=== PATIENT | male | born 1975 | race Hispanic/Latino ===

== ENCOUNTER 2017-03-28 10:57 | Emergency (ER) | payer BC, SELFPAY ==
[2017-03-28 12:23] LABS: #Eosinphils 0.1 thou/uL (0.0-0.7); #Monocytes 0.4 thou/uL (0.11-0.59); %Basophils 0.5 % (0.0-1.0); %Eosinophils 2.3 % (0.0-10.0); %Lymphocytes 36.1 % (21.0-51.0); %Monocytes 6.9 % (0.0-10.0); Hematocrit 46.3 % (42.0-52.0); Red Blood Cell (RBC) Count 5.52 mill/uL (4.70-6.10); White Blood Cell (WBC) Count 5.6 thou/uL (4.8-10.8)
[2017-03-28 12:39] LABS: ALT (SGPT) 23 U/L (8-55); AST (SGOT) 19 U/L (5-34); Alkaline Phosphatase 79 U/L (40-150); Anion Gap 18 mmol/L (10-20); BUN (Urea Nitrogen) 13 mg/dL (8.9-20.6); Bilirubin, Total 0.5 mg/dL (0.2-1.2); Calc. Creatinine Clearance 0 mL/min (70-130); Calcium 9.4 mg/dL (7.8-10.44); Carbon Dioxide 20 mmol/L (22-29); Chloride 100 mmol/L (98-107); Estimated GFR-MDRD Greater than 90; Globulin 3.6 g/dL (2.4-3.5); Protein, Total 7.8 g/dL (6.0-8.3)
[2017-03-28 12:43] LABS: Troponin I Less than 0.010 ng/mL (< 0.028)
--- NOTE | 2017-03-28 13:07 | RAD ---
UPRIGHT PORTABLE CHEST 1 VIEW: Date: 03/28/17 HISTORY: 41-year-old male with chest pressure and numbness to left arm and back pain. FINDINGS: Monitor leads overlie the chest. Heart size is within normal limits. The lungs are clear. This exam is minimally underexposed. IMPRESSION: No acute intrathoracic disease. Stable from 06/26/16. POS: [facility]
[2017-03-28] MEDS ORDERED: HYDROcodone/Acetaminophen 10/325 mg Tablet ONE (13:24)
== END 2017-03-28 13:38 | disposition home or self-care (01) ==
LOC: ERS 10:57
DX: M54.12 Radiculopathy, cervical region (principal); G89.29 Other chronic pain; E78.5 Hyperlipidemia, unspecified; E11.9 Type 2 diabetes mellitus without complications
CPT/HCPCS: 36415; 36416; 71010; 80053; 82553; 84484; 85025; 93005

== ENCOUNTER 2017-06-03 01:08 | Emergency (ER) | payer SELFPAY ==
[2017-06-03 01:37] LABS: #Basophils 0.1 thou/uL (0.0-0.2); #Eosinphils 0.1 thou/uL (0.0-0.7); #Lymphocytes 1.9 thou/uL (1.20-3.40); #Monocytes 0.9 thou/uL (0.11-0.59); #Neutrophils 5.7 thou/uL (1.40-6.50); %Basophils 0.6 % (0.0-1.0); %Eosinophils 0.9 % (0.0-10.0); %Lymphocytes 21.8 % (21.0-51.0); %Monocytes 10.7 % (0.0-10.0); Hematocrit 47.2 % (42.0-52.0); Mean Platelet Volume 7.5 fL (7.4-10.4); White Blood Cell (WBC) Count 8.6 thou/uL (4.8-10.8)
[2017-06-03] MEDS ORDERED: Ondansetron HCl/PF 4 MG/2 ML Vial ONE (01:48)
[2017-06-03 01:52] LABS: ALT (SGPT) 32 U/L (8-55); AST (SGOT) 28 U/L (5-34); Alkaline Phosphatase 94 U/L (40-150); Anion Gap 17 mmol/L (10-20); BUN (Urea Nitrogen) 14 mg/dL (8.9-20.6); Bilirubin, Total 0.6 mg/dL (0.2-1.2); Calc. Creatinine Clearance 0 mL/min (70-130); Carbon Dioxide 21 mmol/L (22-29); Chloride 100 mmol/L (98-107); Estimated GFR-MDRD 77; Globulin 3.3 g/dL (2.4-3.5); Protein, Total 7.9 g/dL (6.0-8.3)
[2017-06-03] MEDS ORDERED: Morphine 4 MG/ML VIAL ONE (03:20)
[2017-06-03 04:00] LABS: Anion Gap 10 mmol/L (-14-95); T. Carbon Dioxide 23.9 mmol/L (1.0-85.0); pH (Venous) 7.378 (7.35-7.45); vO2 Saturation-calc 90.2 % (0.0-100.0)
[2017-06-03 04:14] LABS: Troponin I Less than 0.010 ng/mL (< 0.028)
[2017-06-03 04:15] LABS: Lactic Acid - Sepsis 1.5 mmol/L (0.5-2.2)
[2017-06-03] MEDS ORDERED: Acetaminophen 500 MG TAB ONE (04:48)
[2017-06-03] MEDS ORDERED: Bacitracin Zinc 1 Packet ONE (04:51)
--- NOTE | 2017-06-03 07:43 | RAD ---
CHEST PA AND LATERAL: History: 42-year-old male with cough and vomiting. Comparison: 03-28-17 FINDINGS: Heart size is normal. The lungs are clear. No pneumonia, edema, or pleural effusion. IMPRESSION: No acute intrathoracic disease. POS: [facility]
== END 2017-06-03 06:30 | disposition home or self-care (01) ==
LOC: ERS 01:08
DX: E11.65 Type 2 diabetes mellitus with hyperglycemia (principal); E86.0 Dehydration; J11.1 Influenza due to unidentified influenza virus with other respiratory manifestations; E78.5 Hyperlipidemia, unspecified; Z79.4 Long term (current) use of insulin
CPT/HCPCS: 36415; 36416; 71020; 80053; 82010; 82330; 82553; 82803; 83605; 83690; 84484; 85025; 96361; 96374; 96375; J2270; J2405

== ENCOUNTER 2017-06-05 03:01 | Inpatient (IN) | payer SELFPAY ==
[2017-06-05] MEDS ORDERED: Ondansetron HCl/PF 4 MG/2 ML Vial ONE (03:19)
[2017-06-05 03:34] LABS: Anion Gap 13 mmol/L (-14-95); T. Carbon Dioxide 23.1 mmol/L (1.0-85.0); pH (Venous) 7.362 (7.35-7.45); vO2 Saturation-calc 71.5 % (0.0-100.0)
[2017-06-05] MEDS ORDERED: Ketorolac Tromethamine 30 MG/ML VIAL ONE (03:34)
[2017-06-05 03:36] LABS: #Basophils 0.1 thou/uL (0.0-0.2); #Eosinphils 0.1 thou/uL (0.0-0.7); #Lymphocytes 2.5 thou/uL (1.20-3.40); #Monocytes 0.8 thou/uL (0.11-0.59); #Neutrophils 4.1 thou/uL (1.40-6.50); %Basophils 0.8 % (0.0-1.0); %Eosinophils 1.6 % (0.0-10.0); %Lymphocytes 32.7 % (21.0-51.0); %Monocytes 10.5 % (0.0-10.0); Hematocrit 45.3 % (42.0-52.0); Mean Platelet Volume 7.8 fL (7.4-10.4); Red Blood Cell (RBC) Count 5.25 mill/uL (4.70-6.10); White Blood Cell (WBC) Count 7.6 thou/uL (4.8-10.8)
[2017-06-05 03:40] LABS: Base Excess -4.7 mEq/L (0 (+/- 2.5)); O2 Content (venous) 20.4 VOL% (12.5-17.5); pH (venous) 7.35 (7.35-7.45)
[2017-06-05] MEDS ORDERED: Insulin Regular 300 UNITS/3 ML VIAL ONE (03:44)
[2017-06-05 03:55] LABS: ALT (SGPT) 28 U/L (8-55); AST (SGOT) 18 U/L (5-34); Alkaline Phosphatase 97 U/L (40-150); Anion Gap 19 mmol/L (10-20); BUN (Urea Nitrogen) 16 mg/dL (8.9-20.6); Bilirubin, Total 0.6 mg/dL (0.2-1.2); Calc. Creatinine Clearance 0 mL/min (70-130); Calcium 9.5 mg/dL (7.8-10.44); Carbon Dioxide 21 mmol/L (22-29); Chloride 96 mmol/L (98-107); Estimated GFR-MDRD 50; Globulin 3.1 g/dL (2.4-3.5); Protein, Total 7.6 g/dL (6.0-8.3)
[2017-06-05] MEDS ORDERED: Acetaminophen 500 MG TAB ONE (04:20)
[2017-06-05] MEDS ORDERED: Sodium Chloride 0.9% 1,000 ML IV SCH (05:42)
[2017-06-05] MEDS ORDERED: Acetaminophen 325 MG TAB PO PRN ×2 (05:42→07:12)
[2017-06-05] MEDS ORDERED: Ondansetron ODT 4 MG TAB SL PRN (05:42)
[2017-06-05] MEDS ORDERED: Ondansetron HCl/PF 4 MG/2 ML Vial IVP PRN ×2 (05:42→07:12)
[2017-06-05] MEDS ORDERED: NS 0.9% w/ 20 MEQ KCL 1,000 ML/1,000 ML BAG IV PRN (06:29)
[2017-06-05 06:31] VITALS: BMI 31.6
[2017-06-05] MEDS ORDERED: Sodium Chloride 0.65% Nasal 44 ML BOT EA NARE PRN (07:12)
[2017-06-05] MEDS ORDERED: Artificial Tears 18 DROP/0.9 ML EA EYE PRN (07:12)
[2017-06-05] MEDS ORDERED: Zolpidem Tartrate 5 MG TAB PO PRN (07:12)
[2017-06-05] MEDS ORDERED: Loperamide HCl 2 MG CAP PO PRN (07:12)
[2017-06-05] MEDS ORDERED: hydrALAZINE 20 MG/ML VIAL SLOW IVP PRN (07:12)
[2017-06-05] MEDS ORDERED: Ondansetron ODT 4 MG TAB PO PRN (07:12)
[2017-06-05] MEDS ORDERED: Milk Of Magnesia 30 ML UDCUP PO PRN (07:12)
[2017-06-05] MEDS ORDERED: Chloraseptic Spray 180 ml Bottle PO PRN (07:12)
[2017-06-05] MEDS ORDERED: HYDROcodone/Acetaminophen 5/325 mg Tablet PO PRN (07:12)
[2017-06-05] MEDS ORDERED: Loratadine 10 MG TAB PO PRN (07:12)
[2017-06-05] MEDS ORDERED: Senokot 8.6 MG TAB PO PRN (07:12)
[2017-06-05] MEDS ORDERED: Eucerin (Mineral Oil/Petrolatum,White) 30 gm Jar TOP PRN (07:12)
[2017-06-05] MEDS ORDERED: Mag-Al 1200 mg/1200 mg/30 ML UDCUP PO PRN (07:12)
[2017-06-05] MEDS ORDERED: Dextrose 50% Abboject 50 ML SYRINGE SLOW IVP PRN (07:12)
[2017-06-05] MEDS ORDERED: Dextrose 5% in Water 1,000 ML IV PRN (07:12)
[2017-06-05] MEDS ORDERED: Promethazine HCl 25 MG/ML VIAL IM/IV PRN (07:19)
--- NOTE | 2017-06-05 07:40 | RAD ---
PORTABLE CHEST: History: Fever, malaise. Flu syndrome. Comparison: 06-03-17 FINDINGS: Lungs remain clear. No infiltrate identified. Heart and mediastinum are unremarkable. IMPRESSION: No acute abnormality. POS: [facility]
[2017-06-05] MEDS: Famotidine/PF 20 mg/2ml Vial SLOW IVP SCH ×2 (08:14→20:50)
[2017-06-05] MEDS: Gemfibrozil 600 MG TAB PO SCH ×2 (08:14→15:46)
[2017-06-05] MEDS: NS 0.9% w/ 20 MEQ KCL 1,000 ML/1,000 ML BAG IV SCH ×3 (08:22→22:34)
[2017-06-05] MEDS: Enoxaparin Sodium 40 MG/0.4 ML SYRINGE SC SCH (08:24)
[2017-06-05] MEDS ORDERED: Non-Formulary Item 1 EACH (Levemir Flexpen [Levemir Flexpen] 10 UNIT) SC SCH (09:00)
[2017-06-05] MEDS: Insulin Detemir 100 UNITS/ML 10 UNITS in Pre-Filled Syringe 1 EACH SC SCH ×2 (10:32→20:51)
--- NOTE | 2017-06-05 12:07 | HP ---
PRIMARY CARE PHYSICIAN: Tressa Kunz M.D. REASON FOR ADMISSION: Acute kidney failure and hyperglycemia. HISTORY OF PRESENT ILLNESS: A 42-year-old male with a history of diabetes type 2, dyslipide osmany, vitamin D deficiency, who presented to the emergency room with complaint of nausea, vomiting, chris dy ache. Patient reports that he came to the emergency room on 06/03/2017 and he was told that he wilhelm d influenza, but Influenza testing was done on that day and that was negative. The patient was havin g headache, body ache, fever or chills, rigors at home and he was also having nausea and vomiting. H e was not tolerating any medication as well as diet. The patient was not feeling better and his over -the-counter treatment was not helping, and that is why he decided to come to the emergency room agai n today. The patient was not taking his Levemir insulin because he was not holding anything down. P atient was also not holding liquid. Patient was becoming more and more weak and that is why he came to the ER. In the emergency room, he was found with hyperglycemia and acute kidney failure. Subsequ ently, patient was admitted in IMCU with insulin drip. When I saw this patient, at that time, patient was feeling better. He was able to tolerate some food . He was still not feeling normal, but he was feeling some improvement after emergency room treatmen t. The patient denies any runny nose. He denies any sinus headache. He denies any ear problems. He de nies any sore throat. He denies any cough, chest pain, palpitations, shortness of breath. He does r eport polyuria or polydipsia. REVIEW OF SYSTEMS: The following complete review of systems was negative, unless otherwise mentioned in the HPI or below: Constitutional: Weight loss or gain, ability to conduct usual activities. Skin: Rash, itching. Eyes: Double vision, pain. ENT/Mouth: Nose bleeding, neck stiffness, pain, tenderness. Cardiovascular: Palpitations, dyspnea on exertion, orthopnea. Respiratory: Shortness of breath, wheezing, cough, hemoptysis, fever or night sweats. Gastrointestinal: Poor appetite, abdominal pain, heartburn, nausea, vomiting, constipation, or diarr hea. Genitourinary: Urgency, frequency, dysuria, nocturia. Musculoskeletal: Pain, swelling. Neurologic/Psychiatric: Anxiety, depression. Allergy/Immunologic: Skin rash, bleeding tendency. Please see my HPI for pertinent positives and negatives. All other review of systems reviewed and ne gative except as mentioned in the HPI. ALLERGIES: No known drug allergies. CURRENT HOME MEDICATION: Levemir 10 units subcu daily. PAST MEDICAL HISTORY: Diabetes type 2 on insulin, chronic low back pain, dyslipidemia, history of pe ptic ulcer disease, hypertension, and obesity. PAST SURGICAL HISTORY: Rhinoplasty, cardiac catheterization in 2015, L4-L5 fusion in 2016. PAST PSYCHIATRIC HISTORY: Reviewed and negative. SOCIAL HISTORY: Patient lives at home with the family. No history of tobacco, alcohol or illicit dr ug abuse. FAMILY HISTORY: Diabetes and hypertension runs among several family members. No strong family histo ry of coronary artery disease, stroke or cancer. EMERGENCY ROOM COURSE: Patient is given Novolin R 6 units per hour insulin drip, Tylenol 1 gram, IV fluid 1 liter, Toradol 30 mg, Zofran 4 mg, and Humulin R 10 unit bolus was given. PHYSICAL EXAMINATION: VITAL SIGNS: On arrival, blood pressure 160/119, pulse 127, respiratory rate 22, temperature 98.3, s aturation 96% on room air, and weight 102.1 kilograms. GENERAL: Patient is currently alert, awake, no obvious acute distress. Appears weak. HEAD: Normocephalic, atraumatic. EYES: Pupils round, reactive to light. Extraocular muscle intact. ENT: Oropharynx within normal limits. Moist mucous membranes. No oral lesions. No pharyngeal eryt talia, no exudates. NECK: Supple, no JVD, no thyromegaly, no carotid bruit, no jugular venous distention. LUNGS: Clear to auscultation without any rhonchi or rales. CARDIAC: S1 and S2 regular, tachycardia, no murmur, no gallop, no rub. ABDOMEN: Soft. Mild epigastric discomfort noted, no peritoneal sign, no guarding, no rigidity, no r ebound, no mass. BACK: Examination unremarkable, no CVA tenderness. EXTREMITIES: Upper extremity passive movements of all joints are normal. Lower extremities: No yohan ma. Good peripheral pulsation. SKIN: No skin rash. HEMATOLOGICAL SYSTEM: No lymphadenopathy. PSYCHIATRIC: Normal affect. SKIN: No skin rash. NEUROLOGIC: Nonfocal examination. IMAGING DATA AND SIGNIFICANT LABORATORY DATA: 1. Chest x-ray based on my review, no acute cardiopulmonary process. Monitor showing normal sinus r hythm. 2. CBC: WBC 7.6, hemoglobin 15.3, platelet 235. 3. VBG: pH 7.36, CO2 38.5, O2 38.8, bicarbonate 21.9. 4. BMP: Sodium 132, potassium 3.7, chloride 96, carbon dioxide 21, BUN 16, creatinine 1.55, glucose 568, calcium 9.5. 5. LFT: Protein 7.6, albumin 4.6, AST 18, ALT 28, alkaline phosphatase 97, serum ketones 0.91. ASSESSMENT AND PLAN/IMPRESSION: 1. Hyperglycemia associated with diabetes type 2. Patient is insulin-dependent and because of nause a, vomiting, and poor p.o. tolerance patient was not taking his insulin and that might have contribut ed to his hyperglycemia. This patient has mild ketosis likely due to poor p.o. intake and this patie nt is at risk for diabetic ketoacidosis. At this point, the patient will require admission for alber r glycemic control. 2. Acute kidney failure, likely due to prerenal etiology from nausea, vomiting, and osmotic diuresis . The patient will be given IV fluid and we will repeat BMP tomorrow. 3. Hyponatremia likely due to pseudohyponatremia from hyperglycemia. We will repeat BMP tomorrow. 4. Nausea, vomiting. The patient will be treated symptomatically with Zofran and Phenergan on as ne eded basis. 5. Epigastric discomfort. We will continue to treat clinically with Pepcid 20 mg IV b.i.d. 6. Dyslipidemia. Patient has hypertriglyceridemia history. We will start Lopid 600 mg twice daily and check lipid profile tomorrow. 7. Vitamin D deficiency. We will start vitamin D 1000 units p.o. daily. 8. Hypertension. We will monitor patient's vital signs while in hospital and if needed, we will sta rt antihypertensive medication. 9. Chronic low back pain. We will control his pain with Tylenol, [place] on p.r.n. basis. 10. Deep venous thrombosis prophylaxis. Lovenox 40 mg subcutaneously daily. 11. Gastrointestinal prophylaxis. Pepcid 20 mg IV b.i.d. 12. Code status: The patient is FULL CODE. Disposition plan based on clinical course. We are expecting patient's stay in hospital more than 2 m idnights. At this point, the patient does not need in IMCU that is why we will consider transferring him to medical floor.
[2017-06-05] MEDS: HumaLOG 300 UNITS/3 ML VIAL SC PRN ×2 (17:46→20:51)
[2017-06-05] MEDS ORDERED: FLU VACC QS2017-18 36 mo. & older 0.5 ML SYRINGE IM ONE (21:00)
[2017-06-05] MEDS: Diabetic Tussin 200 MG/10 ML UDCUP PO PRN (22:40)
[2017-06-06 04:33] LABS: #Eosinphils 0.2 thou/uL (0.0-0.7); #Lymphocytes 2.9 thou/uL (1.20-3.40); #Monocytes 0.6 thou/uL (0.11-0.59); #Neutrophils 2.7 thou/uL (1.40-6.50); %Basophils 0.8 % (0.0-1.0); %Eosinophils 2.8 % (0.0-10.0); %Lymphocytes 46.1 % (21.0-51.0); %Monocytes 8.6 % (0.0-10.0); Hematocrit 41.1 % (42.0-52.0); Mean Platelet Volume 7.4 fL (7.4-10.4); Red Blood Cell (RBC) Count 4.74 mill/uL (4.70-6.10); White Blood Cell (WBC) Count 6.3 thou/uL (4.8-10.8)
[2017-06-06 04:39] LABS: Hemoglobin A1c 11.3 % (4.0-6.0)
[2017-06-06 04:45] LABS: ALT (SGPT) 23 U/L (8-55); AST (SGOT) 14 U/L (5-34); Alkaline Phosphatase 78 U/L (40-150); Anion Gap 12 mmol/L (10-20); BUN (Urea Nitrogen) 10 mg/dL (8.9-20.6); Bilirubin, Total 0.6 mg/dL (0.2-1.2); Calc. Creatinine Clearance 198 mL/min (70-130); Calcium 9.1 mg/dL (7.8-10.44); Carbon Dioxide 27 mmol/L (22-29); Chloride 104 mmol/L (98-107); Cholesterol 270 mg/dl (< 200 Desired); Estimated GFR-MDRD Greater than 90; Globulin 2.8 g/dL (2.4-3.5); LDL Cholesterol, Calculated 166 mg/dL; Protein, Total 6.8 g/dL (6.0-8.3)
[2017-06-06] MEDS: Gemfibrozil 600 MG TAB PO SCH ×2 (09:02→16:06)
[2017-06-06] MEDS: NS 0.9% w/ 20 MEQ KCL 1,000 ML/1,000 ML BAG IV SCH ×2 (09:03→11:27)
[2017-06-06] MEDS: Enoxaparin Sodium 40 MG/0.4 ML SYRINGE SC SCH (09:03)
[2017-06-06] MEDS: Insulin Detemir 100 UNITS/ML 10 UNITS in Pre-Filled Syringe 1 EACH SC SCH ×2 (09:03→20:22)
[2017-06-06] MEDS: Famotidine/PF 20 mg/2ml Vial SLOW IVP SCH ×2 (09:03→20:22)
--- NOTE | 2017-06-06 10:22 | PDOC.PN ---
- Subjective Encounter Start Date: 06/06/17 Encounter Start Time: 08:40 -: old records requested/rev Patient seen and examined. has dry cough, feels congested, no fever, tolerating diet .No new complaints. No overnight events - Objective Resuscitation Status: Resuscitation Status FULL:Full Resuscitation MAR Reviewed: Yes Vital Signs & Weight: Vital Signs (12 hours) Temp Pulse Resp BP BP Pulse Ox 06/06/17 08:00 97.5 F L 65 18 112/75 99 06/06/17 04:00 97.6 F 72 16 125/62 98 06/06/17 01:57 99 06/06/17 00:00 97.9 F 69 16 129/85 99 Weight Weight 253 lb 7 oz I&O: 06/05/17 06/06/17 06/07/17 06:59 06:59 06:59 Intake Total 3290 Output Total 525 2900 Balance -525 390 Result Diagrams: 06/06/17 03:35 06/06/17 03:35 Additional Labs: Accuchecks 06/06/17 06/06/17 06/06/17 07:26 05:04 00:32 POC Glucose 178 H 159 H 195 H 06/05/17 06/05/17 06/05/17 19:33 16:48 14:34 POC Glucose 240 H 199 H 251 H 06/05/17 11:06 POC Glucose 216 H Phys Exam - Physical Examination Constitutional: NAD HEENT: PERRLA, moist MMs, sclera anicteric Neck: no JVD, supple Respiratory: no wheezing, no rales, no rhonchi Cardiovascular: RRR, no significant murmur, no rub Gastrointestinal: soft, non-tender, no distention, positive bowel sounds Musculoskeletal: no edema, pulses present Neurological: non-focal, normal sensation, moves all 4 limbs Lymphatic: no nodes Psychiatric: normal affect, A&O x 3 Skin: no rash, normal turgor Dx/Plan (1) Acute kidney failure Status: Acute (2) Epigastric abdominal pain Code(s): R10.13 - EPIGASTRIC PAIN Status: Acute (3) Hyperglycemia due to type 2 diabetes mellitus Code(s): E11.65 - TYPE 2 DIABETES MELLITUS WITH HYPERGLYCEMIA Status: Acute (4) Nausea & vomiting Code(s): R11.2 - NAUSEA WITH VOMITING, UNSPECIFIED Status: Acute (5) Anxiety disorder Code(s): F41.9 - ANXIETY DISORDER, UNSPECIFIED Status: Chronic (6) Dyslipidemia Code(s): E78.5 - HYPERLIPIDEMIA, UNSPECIFIED Status: Chronic (7) Obesity (BMI 30.0-34.9) Code(s): E66.9 - OBESITY, UNSPECIFIED Status: Chronic (8) Viral syndrome Status: Acute - Plan cont current plan of care, continue antibiotics * add claritin D * add mucinex * add amoxicilline * reduce IVF * medication reviewed as below * symptomatic treatment * adjust insulin dose . Review of Systems - Review of Systems Constitutional: Weakness. negative: Fever, Chills, Sweats, Malaise, Other ENT: Nose Congestion. negative: Ear Pain, Ear Discharge, Nose Pain, Nose Discharge, Mouth Pain, Mouth Swelling, Throat Pain, Throat Swelling, Other Respiratory: Cough, Dry. negative: Shortness of Breath, Hemoptysis, SOB with Excertion, Pleuritic Pain, Sputum, Wheezing Cardiovascular: negative: Chest Pain, Palpitations, Orthopnea, Paroxysmal Noc. Dyspnea, Edema, Light Headedness, Other Gastrointestinal: negative: Nausea, Vomiting, Abdominal Pain, Diarrhea, Constipation, Melena, Hematochezia, Other Genitourinary: negative: Dysuria, Frequency, Incontinence, Hematuria, Retention , Other Musculoskeletal: negative: Neck Pain, Shoulder Pain, Arm Pain, Back Pain, Hand Pain, Leg Pain, Foot Pain, Other Skin: negative: Rash, Lesions, Karlo, Bruising, Other - Medications/Allergies Allergies/Adverse Reactions: Allergies Allergy/AdvReac Type Severity Reaction Status Date / Time No Known Allergies Allergy Verified 06/05/17 06:09 Medications: Current Medications Acetaminophen (Tylenol) 650 mg PO Q4H PRN PRN Reason: Headache/Fever or Pain Hydrocodone Bitart/Acetaminophen ([place] 5/325) 1 tab PO Q4H PRN PRN Reason: Moderate Pain (4-6) Al Hydroxide/Mg Hydroxide (Maalox) 30 ml PO Q6H PRN PRN Reason: Heartburn or Indigestion Artificial Tears (Tears Naturale) 0 drop EA EYE PRN PRN PRN Reason: Dry Eyes Cholecalciferol (Vitamin D3) 1,000 units PO DAILY [facility] Last Admin: 06/06/17 09:02 Dose: 1,000 units Dextrose/Water (Dextrose 50%) 25 gm SLOW IVP PRN PRN PRN Reason: Hypoglycemia Enoxaparin Sodium (Lovenox) 40 mg SC 0900 [facility] Last Admin: 06/06/17 09:03 Dose: Not Given Famotidine (Pepcid) 20 mg SLOW IVP Q12HR [facility] Last Admin: 06/06/17 09:03 Dose: 20 mg Gemfibrozil (Lopid) 600 mg PO BID-AC [facility] Last Admin: 06/06/17 09:02 Dose: 600 mg Glucagon (Glucagon) 1 mg IM PRN PRN PRN Reason: Hypoglycemia Guaifenesin (Robitussin Sf) 200 mg PO Q4H PRN PRN Reason: Cough Last Admin: 06/05/17 22:40 Dose: 200 mg Hydralazine HCl (Apresoline) 10 mg SLOW IVP Q4H PRN PRN Reason: Systolic BP > 180 Potassium Chloride/Sodium Chloride (Ns 0.9% W/ 20 Meq Kcl) 1,000 ml in 1,000 mls @ 500 mls/hr IV .Q2H PRN; Protocol PRN Reason: STEP 2: DKA PROTOCOL Dextrose/Water (D5w) 1,000 mls @ 0 mls/hr IV .Q0M PRN; As Directed PRN Reason: Hypoglycemia Potassium Chloride/Sodium Chloride (Ns 0.9% W/ 20 Meq Kcl) 1,000 ml in 1,000 mls @ 125 mls/hr IV .Q8H [facility] Last Admin: 06/06/17 09:03 Dose: 1,000 mls Insulin Detemir 10 units/ (Miscellaneous Medication) 0.1 mls @ 0 mls/hr SC BID [facility] Last Admin: 06/06/17 09:03 Dose: 0.1 mls Insulin Human Lispro (Humalog) 0 units SC .AGGRESSIVE SLIDING PRN PRN Reason: Aggressive Correctional Scale Last Admin: 06/05/17 20:51 Dose: 6 unit Insulin Human Lispro (Humalog) 0 units SC .BEDTIME SLIDING SC PRN PRN Reason: Bedtime Correctional Scale Loperamide HCl (Imodium) 2 mg PO PRN PRN PRN Reason: Diarrhea/Loose Stools Loratadine (Claritin) 10 mg PO DAILYPRN PRN PRN Reason: Sinus Symptoms Magnesium Hydroxide (Milk Of Magnesium) 30 ml PO DAILYPRN PRN PRN Reason: Constipation Mineral Oil/White Petrolatum (Eucerin Cream) 0 gm TOP BIDPRN PRN PRN Reason: Dry Skin Ondansetron HCl (Zofran Odt) 4 mg PO Q6H PRN PRN Reason: Nausea/Vomiting Ondansetron HCl (Zofran) 4 mg IVP Q6H PRN PRN Reason: Nausea/Vomiting Last Admin: 06/05/17 22:33 Dose: 4 mg Phenol (Chloraseptic [place] 180 Ml Bot) 0 ml PO PRN PRN PRN Reason: Sore Throat Promethazine HCl (Phenergan) 12.5 mg IM/IV Q6H PRN PRN Reason: Nausea/Vomiting Senna (Senokot) 2 tab PO HSPRN PRN PRN Reason: Constipation Sodium Chloride (Flush - Normal Saline) 10 ml IVF Q12HR [facility] Last Admin: 06/06/17 09:08 Dose: 10 ml Sodium Chloride (Flush - Normal Saline) 10 ml IVF PRN PRN PRN Reason: Saline Flush Sodium Chloride ([place] Nasal [place] 0.65%) 0 ml EA NARE QIDPRN PRN PRN Reason: Nasal Congestion Zolpidem Tartrate (Ambien) 5 mg PO HSPRN PRN PRN Reason: Insomnia
[2017-06-06] MEDS ORDERED: Loratadine/Pseudoephedrine 10/240 mg Tablet PO PRN (10:23)
[2017-06-06] MEDS ORDERED: Loratadine/Pseudoephedrine 10/240 mg Tablet PO SCH (10:30)
[2017-06-06] MEDS: HumaLOG 300 UNITS/3 ML VIAL SC PRN ×3 (12:41→20:28)
[2017-06-06] MEDS: AMOXicillin 250 MG CAP PO SCH ×2 (16:06→20:21)
[2017-06-06] MEDS: guaiFENesin ER 600 MG TAB PO SCH ×2 (16:06→20:22)
[2017-06-07] MEDS: HumaLOG 300 UNITS/3 ML VIAL SC PRN ×4 (00:09→20:48)
[2017-06-07] MEDS: NS 0.9% w/ 20 MEQ KCL 1,000 ML/1,000 ML BAG IV SCH ×2 (01:26→14:35)
[2017-06-07] MEDS: Insulin Detemir 100 UNITS/ML 10 UNITS in Pre-Filled Syringe 1 EACH SC SCH ×2 (08:16→20:43)
[2017-06-07] MEDS: guaiFENesin ER 600 MG TAB PO SCH ×3 (08:18→20:43)
[2017-06-07] MEDS: Famotidine/PF 20 mg/2ml Vial SLOW IVP SCH (08:18)
[2017-06-07] MEDS: Gemfibrozil 600 MG TAB PO SCH ×2 (08:18→15:45)
[2017-06-07] MEDS: Enoxaparin Sodium 40 MG/0.4 ML SYRINGE SC SCH (08:18)
[2017-06-07] MEDS: AMOXicillin 250 MG CAP PO SCH ×3 (08:18→20:43)
--- NOTE | 2017-06-07 11:19 | PDOC.PN ---
- Subjective Encounter Start Date: 06/07/17 Encounter Start Time: 08:45 Patient seen and examined. No new complaints. No overnight events still has cough, no fever - Objective Resuscitation Status: Resuscitation Status FULL:Full Resuscitation MAR Reviewed: Yes Vital Signs & Weight: Vital Signs (12 hours) Temp Pulse Resp BP Pulse Ox 06/07/17 08:00 97.8 F 71 16 06/07/17 07:23 97.8 F 71 16 108/74 98 Weight Weight 253 lb 7 oz I&O: 06/06/17 06/07/17 06/08/17 06:59 06:59 06:59 Intake Total 3290 900 Output Total 2900 Balance 390 900 Result Diagrams: 06/06/17 03:35 06/06/17 03:35 Additional Labs: Accuchecks 06/07/17 06/06/17 06/06/17 04:37 23:45 20:29 POC Glucose 172 H 229 H 310 H 06/06/17 06/06/17 15:39 11:47 POC Glucose 250 H 195 H Phys Exam - Physical Examination Constitutional: NAD HEENT: PERRLA, moist MMs, sclera anicteric Neck: no JVD, supple Respiratory: no wheezing, no rales, no rhonchi Cardiovascular: RRR, no significant murmur, no rub Gastrointestinal: soft, non-tender, no distention, positive bowel sounds Musculoskeletal: no edema, pulses present Neurological: non-focal, normal sensation, moves all 4 limbs Lymphatic: no nodes Psychiatric: normal affect, A&O x 3 Skin: no rash, normal turgor Dx/Plan (1) Acute kidney failure Status: Acute (2) Epigastric abdominal pain Code(s): R10.13 - EPIGASTRIC PAIN Status: Acute (3) Hyperglycemia due to type 2 diabetes mellitus Code(s): E11.65 - TYPE 2 DIABETES MELLITUS WITH HYPERGLYCEMIA Status: Acute (4) Nausea & vomiting Code(s): R11.2 - NAUSEA WITH VOMITING, UNSPECIFIED Status: Acute (5) Anxiety disorder Code(s): F41.9 - ANXIETY DISORDER, UNSPECIFIED Status: Chronic (6) Dyslipidemia Code(s): E78.5 - HYPERLIPIDEMIA, UNSPECIFIED Status: Chronic (7) Obesity (BMI 30.0-34.9) Code(s): E66.9 - OBESITY, UNSPECIFIED Status: Chronic (8) Viral syndrome Status: Acute - Plan cont current plan of care, continue antibiotics, respiratory therapy * continue amoxyciline * continue to adjust diabetes meds * medication reviewed as below * symptomatic treatment. Review of Systems - Review of Systems Constitutional: negative: Fever, Chills, Sweats, Weakness, Malaise, Other Eyes: negative: Pain, Vision Change, Conjunctivae Inflammation, Eyelid Inflammation, Redness, Other Respiratory: Cough, Dry. negative: Shortness of Breath, Hemoptysis, SOB with Excertion, Pleuritic Pain, Sputum, Wheezing Cardiovascular: negative: Chest Pain, Palpitations, Orthopnea, Paroxysmal Noc. Dyspnea, Edema, Light Headedness, Other Gastrointestinal: negative: Nausea, Vomiting, Abdominal Pain, Diarrhea, Constipation, Melena, Hematochezia, Other Genitourinary: negative: Dysuria, Frequency, Incontinence, Hematuria, Retention , Other Musculoskeletal: negative: Neck Pain, Shoulder Pain, Arm Pain, Back Pain, Hand Pain, Leg Pain, Foot Pain, Other Skin: negative: Rash, Lesions, Karlo, Bruising, Other - Medications/Allergies Allergies/Adverse Reactions: Allergies Allergy/AdvReac Type Severity Reaction Status Date / Time No Known Allergies Allergy Verified 06/05/17 06:09 Medications: Current Medications Acetaminophen (Tylenol) 650 mg PO Q4H PRN PRN Reason: Headache/Fever or Pain Hydrocodone Bitart/Acetaminophen ([place] 5/325) 1 tab PO Q4H PRN PRN Reason: Moderate Pain (4-6) Al Hydroxide/Mg Hydroxide (Maalox) 30 ml PO Q6H PRN PRN Reason: Heartburn or Indigestion Amoxicillin (Amoxil) 500 mg PO TID [facility] Last Admin: 06/07/17 08:18 Dose: 500 mg Artificial Tears (Tears Naturale) 0 drop EA EYE PRN PRN PRN Reason: Dry Eyes Cholecalciferol (Vitamin D3) 1,000 units PO DAILY [facility] Last Admin: 06/07/17 08:18 Dose: 1,000 units Dextrose/Water (Dextrose 50%) 25 gm SLOW IVP PRN PRN PRN Reason: Hypoglycemia Enoxaparin Sodium (Lovenox) 40 mg SC 0900 [facility] Last Admin: 06/07/17 08:18 Dose: Not Given Famotidine (Pepcid) 20 mg SLOW IVP Q12HR [facility] Last Admin: 12/16/17 08:18 Dose: 20 mg Gemfibrozil (Lopid) 600 mg PO BID-AC [facility] Last Admin: 06/07/17 08:18 Dose: 600 mg Glucagon (Glucagon) 1 mg IM PRN PRN PRN Reason: Hypoglycemia Guaifenesin (Robitussin Sf) 200 mg PO Q4H PRN PRN Reason: Cough Last Admin: 06/05/17 22:40 Dose: 200 mg Guaifenesin (Mucinex) 600 mg PO TID [facility] Last Admin: 06/07/17 08:18 Dose: 600 mg Hydralazine HCl (Apresoline) 10 mg SLOW IVP Q4H PRN PRN Reason: Systolic BP > 180 Potassium Chloride/Sodium Chloride (Ns 0.9% W/ 20 Meq Kcl) 1,000 ml in 1,000 mls @ 500 mls/hr IV .Q2H PRN; Protocol PRN Reason: STEP 2: DKA PROTOCOL Dextrose/Water (D5w) 1,000 mls @ 0 mls/hr IV .Q0M PRN; As Directed PRN Reason: Hypoglycemia Insulin Detemir 10 units/ (Miscellaneous Medication) 0.1 mls @ 0 mls/hr SC BID [facility] Last Admin: 06/07/17 08:16 Dose: 0.1 mls Potassium Chloride/Sodium Chloride (Ns 0.9% W/ 20 Meq Kcl) 1,000 ml in 1,000 mls @ 75 mls/hr IV .[id number] [facility] Last Admin: 06/07/17 01:26 Dose: 1,000 mls Insulin Human Lispro (Humalog) 0 units SC .AGGRESSIVE SLIDING PRN PRN Reason: Aggressive Correctional Scale Last Admin: 06/07/17 10:58 Dose: 6 unit Insulin Human Lispro (Humalog) 0 units SC .BEDTIME SLIDING SC PRN PRN Reason: Bedtime Correctional Scale Last Admin: 06/07/17 00:09 Dose: 2 unit Loperamide HCl (Imodium) 2 mg PO PRN PRN PRN Reason: Diarrhea/Loose Stools Loratadine (Claritin) 10 mg PO DAILYPRN PRN PRN Reason: Sinus Symptoms Loratadine/Pseudoephedrine Sulfate (Claritin-D 24 Hour) 1 tab PO DAILY PRN PRN Reason: Allergies Last Admin: 06/07/17 08:17 Dose: 1 tab Magnesium Hydroxide (Milk Of Magnesium) 30 ml PO DAILYPRN PRN PRN Reason: Constipation Mineral Oil/White Petrolatum (Eucerin Cream) 0 gm TOP BIDPRN PRN PRN Reason: Dry Skin Ondansetron HCl (Zofran Odt) 4 mg PO Q6H PRN PRN Reason: Nausea/Vomiting Ondansetron HCl (Zofran) 4 mg IVP Q6H PRN PRN Reason: Nausea/Vomiting Last Admin: 06/05/17 22:33 Dose: 4 mg Phenol (Chloraseptic [place] 180 Ml Bot) 0 ml PO PRN PRN PRN Reason: Sore Throat Promethazine HCl (Phenergan) 12.5 mg IM/IV Q6H PRN PRN Reason: Nausea/Vomiting Senna (Senokot) 2 tab PO HSPRN PRN PRN Reason: Constipation Sodium Chloride (Flush - Normal Saline) 10 ml IVF Q12HR [facility] Last Admin: 06/07/17 08:18 Dose: 10 ml Sodium Chloride (Flush - Normal Saline) 10 ml IVF PRN PRN PRN Reason: Saline Flush Sodium Chloride ([place] Nasal [place] 0.65%) 0 ml EA NARE QIDPRN PRN PRN Reason: Nasal Congestion Zolpidem Tartrate (Ambien) 5 mg PO HSPRN PRN PRN Reason: Insomnia
[2017-06-07] MEDS: Diabetic Tussin 200 MG/10 ML UDCUP PO PRN (15:45)
[2017-06-07] MEDS: Famotidine 20 MG TAB PO SCH (20:43)
[2017-06-07 20:59] VITALS: TEMP 97.7
[2017-06-08] MEDS: HumaLOG 300 UNITS/3 ML VIAL SC PRN (00:23)
[2017-06-08] MEDS: NS 0.9% w/ 20 MEQ KCL 1,000 ML/1,000 ML BAG IV SCH (04:08)
[2017-06-08] MEDS: Gemfibrozil 600 MG TAB PO SCH (08:07)
[2017-06-08] MEDS: guaiFENesin ER 600 MG TAB PO SCH (08:07)
[2017-06-08] MEDS: AMOXicillin 250 MG CAP PO SCH (08:07)
[2017-06-08] MEDS: Famotidine 20 MG TAB PO SCH (08:07)
[2017-06-08] MEDS: Enoxaparin Sodium 40 MG/0.4 ML SYRINGE SC SCH (08:08)
[2017-06-08 08:26] VITALS: BP 116/75
[2017-06-08] MEDS: Insulin Detemir 100 UNITS/ML 10 UNITS in Pre-Filled Syringe 1 EACH SC SCH (08:45)
[2017-06-08] MEDS ORDERED: Furosemide 40 MG/4 ML VIAL ONE (09:08)
--- NOTE | 2017-06-08 11:38 | DIS ---
DATE OF ADMISSION: 06/05/2017 DATE OF DISCHARGE: 06/08/2017 PRIMARY CARE PHYSICIAN: [facility]. DISCHARGE DISPOSITION: Home. PRIMARY DISCHARGE DIAGNOSES: 1. Acute bronchitis. 2. Hyperglycemia associated with diabetes type 2. 3. Acute kidney failure, improved. 4. Nausea, vomiting, and abdominal pain, resolved. SECONDARY DISCHARGE DIAGNOSES: Obesity with body mass index 31, dyslipidemia, anxiety disorder, and diabetes type 2. PRIMARY PROCEDURES/OPERATIONS: None. RADIOLOGICAL INVESTIGATION: Chest x-ray was normal. SIGNIFICANT LABORATORY DATA: WBC 6.3, hemoglobin 13.7, platelets 224. Sodium 137, potassium 3.7, BU N 10, creatinine 0.80, calcium 9.1, hemoglobin A1c 11.3, triglycerides 359, cholesterol 270, LDL 166, and TSH 0.60. Liver enzymes normal. Serum ketones 0.22. DISCHARGE MEDICATIONS: Amoxicillin 500 mg p.o. q.8 hourly for 5 days, vitamin D3 1000 units p.o. lesiva ly, Pepcid 20 mg p.o. b.i.d., Lopid 600 mg p.o. b.i.d., Mucinex 600 mg p.o. t.i.d. for 5 days, Levemi r insulin 10 units subcu b.i.d., metformin 500 mg p.o. b.i.d. CONTRAINDICATIONS: None. CODE STATUS: FULL CODE. INPATIENT CONSULTANTS: None. ALLERGIES: No known drug allergy. DISCHARGE PLAN: Post hospital, patient will follow up with [facility] in 1 week. HOSPITAL COURSE: A 42-year-old male who was admitted by me. Please see my HPI for further details f or Mr. Giang who has underlying history of diabetes, but he was not taking any insulin because of nausea, vomiting, and abdominal pain. He required one time emergency room with he had a flu testing done which was negative. Patient was having headache, body ache, cough and respiratory symptoms. Jaskaran miller was suffering from viral syndrome. He was dehydrated and he had hyperglycemia on admission and that is why we kept in hospital for observation. We hydrated him with IV fluid. We controlled his blood sugar and we also treated him for viral syndrome. Patient was having lower respiratory symptom s and we suspected acute bronchitis and that is why we prescribed amoxicillin on discharge. Patient' s Levemir insulin dose was increased to twice daily. We provided diabetic education and we provided counseling to be compliant with medical treatment. The patient is advised to follow with primary car e physician in 1 week for further adjustment of insulin therapy. Overall, patient remained stable, afebrile and tolerating p.o. well and he was given instruction to u se Claritin and Robitussin cough syrup [id number] basis. Patient is medically stable for disch arge today. Patient is seen and examined at bedside today. All review of systems was reviewed with him and adrien rivas. PHYSICAL EXAMINATION: VITAL SIGNS: Currently, temperature 98.0, pulse 80, respiratory rate 16, saturation 98%, blood press ure 116/75. Weight 253 pounds. GENERAL: The patient is currently alert, oriented, no acute distress. HEAD: Normocephalic, atraumatic. EYES: Pupils round, reactive to light. Extraocular muscle intact. ENT: Oropharynx is within normal limits. Moist mucous membranes. No oral lesions. No pharyngeal e rythema, no exudate. NECK: Supple, no JVD, no thyromegaly, no carotid bruit. No jugular venous distention. LUNGS: Clear to auscultation without any rhonchi or rales. CARDIAC: S1 and S2 regular, without any murmurs. ABDOMEN: Soft and benign. EXTREMITIES: No edema. NEUROLOGIC: Neurologically, nonfocal examination. Overall, patient is medically stable for discharge. All new medication prescription sent to his phar mike.
== END 2017-06-08 09:22 | disposition home or self-care (01) | DRG 638 ==
LOC: ERS 03:01 → IMCU/EMU 04:29 → T4-A 12:59
PROVIDERS: ADMIT Family Medicine; ATTEND Family Medicine
DX: E11.65 Type 2 diabetes mellitus with hyperglycemia (principal); N17.9 Acute kidney failure, unspecified; J20.9 Acute bronchitis, unspecified; I10 Essential (primary) hypertension; E55.9 Vitamin D deficiency, unspecified; E78.1 Pure hyperglyceridemia; E66.9 Obesity, unspecified; F41.9 Anxiety disorder, unspecified; M54.5 Low back pain; G89.29 Other chronic pain; B34.9 Viral infection, unspecified; Z68.31 Body mass index [BMI] 31.0-31.9, adult; Z79.4 Long term (current) use of insulin; Z91.19 Patient's noncompliance with other medical treatment and regimen; Z82.49 Family history of ischemic heart disease and other diseases of the circulatory system; Z83.3 Family history of diabetes mellitus
CPT/HCPCS: 36415; 36416; 71010; 80053; 80061; 82010; 82330; 82803; 82805; 83036; 84443; 85025; 90471; 90682; 96361; 96365; 96375; 96376; A4216; G0008; J1650; J1815; J1885; J1940; J2405; J7050; Q2036; S0028

== ENCOUNTER 2017-06-17 00:47 | Emergency (ER) | payer SELFPAY ==
[2017-06-17 02:12] LABS: #Lymphocytes 0.8 thou/uL (1.20-3.40); #Monocytes 0.6 thou/uL (0.11-0.59); #Neutrophils 8.5 thou/uL (1.40-6.50); %Basophils 0.3 % (0.0-1.0); %Eosinophils 0.2 % (0.0-10.0); %Monocytes 5.7 % (0.0-10.0); Hematocrit 50.2 % (42.0-52.0); Mean Platelet Volume 8.1 fL (7.4-10.4); Red Blood Cell (RBC) Count 5.85 mill/uL (4.70-6.10); White Blood Cell (WBC) Count 9.9 thou/uL (4.8-10.8)
[2017-06-17 02:31] LABS: ALT (SGPT) 22 U/L (8-55); AST (SGOT) 16 U/L (5-34); Alkaline Phosphatase 89 U/L (40-150); Anion Gap 17 mmol/L (10-20); BUN (Urea Nitrogen) 11 mg/dL (8.9-20.6); Bilirubin, Total 0.6 mg/dL (0.2-1.2); Calc. Creatinine Clearance 0 mL/min (70-130); Calcium 10.2 mg/dL (7.8-10.44); Carbon Dioxide 22 mmol/L (22-29); Chloride 97 mmol/L (98-107); Estimated GFR-MDRD 80; Globulin 3.3 g/dL (2.4-3.5); Protein, Total 8.3 g/dL (6.0-8.3)
[2017-06-17] MEDS ORDERED: Ondansetron HCl/PF 4 MG/2 ML Vial ONE ×2 (03:51→05:12)
[2017-06-17] MEDS ORDERED: Ketorolac Tromethamine 30 MG/ML VIAL ONE (05:04)
== END 2017-06-17 06:07 | disposition home or self-care (01) ==
LOC: ERS 00:47
DX: J11.1 Influenza due to unidentified influenza virus with other respiratory manifestations (principal); E86.0 Dehydration; E78.5 Hyperlipidemia, unspecified; E11.9 Type 2 diabetes mellitus without complications; Z79.4 Long term (current) use of insulin
CPT/HCPCS: 36415; 36416; 80053; 85025; 93005; 96361; 96374; 96375; 96376; J1885; J2405

== ENCOUNTER 2017-06-23 00:50 | Emergency (ER) | payer SELFPAY ==
[2017-06-23] MEDS ORDERED: HYDROcodone/Acetaminophen 10/325 mg Tablet ONE (02:26)
[2017-06-23] MEDS ORDERED: Ibuprofen 800 MG TAB ONE (02:26)
== END 2017-06-23 03:13 | disposition home or self-care (01) ==
LOC: ERS 00:50
DX: K11.5 Sialolithiasis (principal); E78.5 Hyperlipidemia, unspecified; E11.9 Type 2 diabetes mellitus without complications
CPT/HCPCS: 36416; 99283

== ENCOUNTER 2019-03-17 16:05 | Emergency (ER) | payer SELFPAY ==
[2019-03-17] MEDS ORDERED: Ondansetron PF 4 MG/2 ML Vial ONE ×2 (17:07→19:39)
[2019-03-17 17:44] LABS: #Basophils 0.1 thou/uL (0.0-0.2); #Lymphocytes 1.9 thou/uL (1.20-3.40); #Monocytes 0.7 thou/uL (0.11-0.59); #Neutrophils 3.1 thou/uL (1.40-6.50); %Basophils 1.2 % (0.0-1.0); %Eosinophils 0.5 % (0.0-10.0); %Lymphocytes 32.4 % (21.0-51.0); %Monocytes 12.1 % (0.0-10.0); %Neutrophils 53.8 % (42.0-75.0); Hemoglobin 17.3 g/dL (14.0-18.0); Mean Corpuscular HGB CONC 34.8 g/dL (32.0-36.0); Mean Corpuscular Hemoglobin 29.9 pg (27.0-31.0); Mean Corpuscular Volume 85.8 fL (78.0-98.0); Mean Platelet Volume 8.2 fL (7.4-10.4); Platelet Count 215 thou/uL (130-400); RBC Distribution Width 12.4 % (11.5-14.5); White Blood Cell (WBC) Count 5.8 thou/uL (4.8-10.8)
[2019-03-17] MEDS ORDERED: Lidocaine Viscous Sol 2% 15 ml UD Cup ONE (17:46)
[2019-03-17] MEDS ORDERED: Pantoprazole 40 MG VIAL ONE ×2 (17:46→17:48)
[2019-03-17] MEDS ORDERED: Mag-Al 1200 mg/1200 mg/30 ML UDCUP ONE (17:46)
[2019-03-17 18:02] LABS: ALT (SGPT) 21 U/L (8-55); AST (SGOT) 15 U/L (5-34); Albumin 4.8 g/dL (3.5-5.0); Alkaline Phosphatase 89 U/L (40-110); Anion Gap 15 mmol/L (10-20); BUN (Urea Nitrogen) 14 mg/dL (8.9-20.6); Bilirubin, Total 0.5 mg/dL (0.2-1.2); Calc. Creatinine Clearance 0 mL/min (70-130); Calcium 9.9 mg/dL (7.8-10.44); Carbon Dioxide 23 mmol/L (22-29); Chloride 98 mmol/L (98-107); Estimated GFR-MDRD 77; Globulin 3.2 g/dL (2.4-3.5); Glucose 236 mg/dL (70-105); Potassium 3.8 mmol/L (3.5-5.1); Sodium 132 mmol/L (136-145)
[2019-03-17] MEDS ORDERED: ISOVUE-370 76%-LOCM 1 ML ONE (18:03)
[2019-03-17 18:17] LABS: Bacteria/HPF None Seen HPF (None Seen); Bilirubin Negative (Negative); Blood, Urine Negative (Negative); Clarity Clear (Clear); Glucose, Urine (Dipstick) Greater than 1000 mg/dL (Negative); Leukocyte Negative Leu/uL (Negative); Mucous/LPF 2+ LPF (<2+); Nitrite Negative (Negative); Protein, Urine (Dipstick) 30 mg/dL (Neg-Trace); RBC/HPF 0-3 HPF (0-3); Squamous Epithelial 0-3 HPF (0-3); Urobilinogen Normal mg/dL (Less than 2); WBC/HPF 0-3 HPF (0-3)
[2019-03-17 18:30] LABS: Troponin I 0.019 ng/mL (< 0.028)
[2019-03-17] MEDS ORDERED: Morphine 4 MG/ML VIAL ONE (19:28)
--- NOTE | 2019-03-17 19:52 | CT ---
EXAM: CT ABDOMEN AND PELVIS HISTORY: Epigastric abdominal pain. Nausea. Vomiting. COMPARISON: None. Procedure: Multiple contiguous axial images were obtained and a CT of the abdomen and pelvis with IV contrast. C oronal reformats were performed. FINDINGS: Lower Chest: within normal limits. Vessels: Normal caliber aorta Heart: Normal heart size. No pericardial effusion Abdomen: Portal vein:Patent Gallbladder: No calcified gallstones. Normal caliber wall. Liver: within normal limits. Pancreas: within normal limits. Spleen: within normal limits. Adrenals: within normal limits. Kidneys: Symmetric enhancement. Bilaterally no obstructive uropathy Peritoneum: No ascites or free air, no fluid collection. Bowel: Limited evaluation due to the lack of oral contrast administration. Slightly prominent duodenu m and proximal jejunum. Findings are nonspecific. Remaining small bowel loops are decompressed. Unremarkable ileocecal junction. Scattered fecal material in a nondistended, nondilated colon. Normal caliber appendix. Mesentery and Retroperitoneum: No enlarged mesenteric or retroperitoneal lymph nodes. Abdominal Wall: within normal limits. Pelvis: Reproductive Organs: Unremarkable prostate gland Pelvis: No mass, lymphadenopathy, free air or free fluid. Bladder: within normal limits. Bones: Lumbar fusion at L4-L5 without perihardware lucency. There is grade 1 anterolisthesis of L4 up on L5. There is a disc prosthesis. 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 IMPRESSION: No evidence of acute intraabdominal\pelvic abnormality.
== END 2019-03-17 21:45 | disposition home or self-care (01) ==
LOC: ERS 16:05
DX: R10.13 Epigastric pain (principal); R10.812 Left upper quadrant abdominal tenderness; R11.2 Nausea with vomiting, unspecified; E11.9 Type 2 diabetes mellitus without complications; E78.00 Pure hypercholesterolemia, unspecified; E78.5 Hyperlipidemia, unspecified; Z87.891 Personal history of nicotine dependence; Z79.4 Long term (current) use of insulin; Z79.891 Long term (current) use of opiate analgesic; Z79.899 Other long term (current) drug therapy
CPT/HCPCS: 74177; 80053; 81003; 81015; 83690; 84484; 85025; 93005; 96361; 96374; 96375; 96376; C9113; J2270; J2405; Q9966

== ENCOUNTER 2020-10-02 15:37 | Emergency (ER) | payer OTHER, SELFPAY ==
[~2020-10-02 15:37] MED LIST: Iopamidol-370 76% 500 ML 1 ML ONE
[2020-10-02] MEDS ORDERED: Lidocaine 2% Viscous Solution 10 ML, Aluminum & Magnesium Hydroxide 30 ML SSW SCH (16:00)
[2020-10-02] MEDS ORDERED: Mag-Al 1200 mg/1200 mg/30 ML UDCUP ONE (16:01)
[2020-10-02] MEDS ORDERED: Lidocaine Viscous Sol 2% 15 ml UD Cup ONE (16:01)
[2020-10-02] MEDS ORDERED: Ondansetron PF 4 MG/2 ML Vial ONE (16:01)
[2020-10-02 16:15] LABS: #Basophils 0.1 thou/uL (0.0-0.2); #Eosinphils 0.2 thou/uL (0.0-0.7); #Lymphocytes 1.2 thou/uL (1.20-3.40); #Monocytes 0.6 thou/uL (0.11-0.59); #Neutrophils 4.4 thou/uL (1.40-6.50); %Basophils 1.3 % (0.0-1.0); %Eosinophils 3.6 % (0.0-10.0); %Lymphocytes 18.7 % (21.0-51.0); %Monocytes 9.7 % (0.0-10.0); %Neutrophils 66.8 % (42.0-75.0); Hemoglobin 16.2 g/dL (14.0-18.0); Mean Corpuscular HGB CONC 32.9 g/dL (32.0-36.0); Mean Corpuscular Hemoglobin 28.1 pg (27.0-31.0); Mean Corpuscular Volume 85.4 fL (78.0-98.0); Platelet Count 237 thou/uL (130-400); RBC Distribution Width 12.9 % (11.5-14.5); Red Blood Cell (RBC) Count 5.76 mill/uL (4.70-6.10); White Blood Cell (WBC) Count 6.6 thou/uL (4.8-10.8)
[2020-10-02 16:36] LABS: ALT (SGPT) 15 U/L (8-55); AST (SGOT) 15 U/L (5-34); Albumin 4.6 g/dL (3.5-5.0); Alkaline Phosphatase 126 U/L (40-110); Anion Gap 13 mmol/L (10-20); BUN (Urea Nitrogen) 17 mg/dL (8.9-20.6); Bilirubin, Total 0.5 mg/dL (0.2-1.2); Calc. Creatinine Clearance 0 mL/min (70-130); Calcium 9.9 mg/dL (7.8-10.44); Carbon Dioxide 24 mmol/L (22-29); Chloride 99 mmol/L (98-107); Globulin 3.9 g/dL (2.4-3.5); Glucose 324 mg/dL (70-105); Potassium 4.4 mmol/L (3.5-5.1); Protein, Total 8.5 g/dL (6.0-8.3); Sodium 132 mmol/L (136-145)
== END 2020-10-02 19:08 | disposition home or self-care (01) ==
LOC: ERS 15:37
DX: K29.70 Gastritis, unspecified, without bleeding (principal); E78.5 Hyperlipidemia, unspecified; E78.00 Pure hypercholesterolemia, unspecified; E11.9 Type 2 diabetes mellitus without complications; Z87.891 Personal history of nicotine dependence; Z79.899 Other long term (current) drug therapy
CPT/HCPCS: 36415; 74177; 80053; 83605; 85025; 87040; 93005; 96374; J2405; Q9967

== ENCOUNTER 2021-02-05 13:48 | Outpatient (CLI) | payer OTHER | END 2021-02-05 13:49 | disposition home or self-care (01) | LOC: BICCT 13:48 | PROVIDERS: ATTEND Internal Medicine | DX: R59.0 Localized enlarged lymph nodes (principal); J98.4 Other disorders of lung; J47.9 Bronchiectasis, uncomplicated | CPT/HCPCS: 71260; Q9967 ==

== ENCOUNTER 2021-03-27 11:47 | Outpatient (CLI) | payer OTHER ==
[2021-03-28 12:12] LABS: SARS-CoV-2 PCR by NAA Not Detected (NotDetected)
== END 2021-03-27 11:48 | disposition home or self-care (01) ==
LOC: LABBT 11:47
PROVIDERS: ATTEND Internal Medicine
DX: Z01.812 Encounter for preprocedural laboratory examination (principal); Z20.822 Contact with and (suspected) exposure to COVID-19
CPT/HCPCS: U0003; U0005

== ENCOUNTER 2021-03-29 09:00 | Day surgery (SDC) | payer OTHER ==
[2021-03-28 10:05] VITALS: BMI 29.5
[2021-03-29] MEDS ORDERED: Benzocaine 20% Spray 60 ML CAN ONE (10:12)
[2021-03-29] MEDS ORDERED: Fentanyl 250 MCG/5 ML VIAL ONE (10:36)
[2021-03-29] MEDS ORDERED: Dexmedetomidine 200 MCG/2 ML VIAL ONE (10:36)
[2021-03-29] MEDS ORDERED: Propofol 500 MG/50 ML VIAL ONE (10:37)
[2021-03-29] MEDS ORDERED: SUGAMMADEX SODIUM 200 MG/2 ML VIAL ONE (10:43)
[2021-03-29] MEDS ORDERED: Midazolam HCl 2 mg/2 ml Vial ONE (10:46)
[2021-03-29] MEDS ORDERED: Lidocaine 1% PF 5 ML VIAL ONE (11:01)
[2021-03-29] MEDS ORDERED: PHENYLEPHRINE-NS 100 MCG/ML 10 ML SYRINGE ONE (11:01)
[2021-03-29] MEDS ORDERED: PROPOFOL 200 MG/20 ML VIAL ONE (11:01)
[2021-03-29] MEDS ORDERED: Dexamethasone 20 MG/5 ML VIAL ONE (11:01)
[2021-03-29] MEDS ORDERED: ePHEDrine 50 MG/ML VIAL ONE (11:01)
[2021-03-29] MEDS ORDERED: Glycopyrrolate 0.2 MG/ML 5 ML SYRINGE ONE (11:01)
[2021-03-29] MEDS ORDERED: Rocuronium Bromide 10 MG/ML (10ML VIAL) ONE (11:01)
[2021-03-29] MEDS ORDERED: Ondansetron PF 4 MG/2 ML Vial ONE (11:01)
[2021-03-29] MEDS ORDERED: Fentanyl 100 MCG/2 ML VIAL ONE ×2 (13:27→13:50)
[2021-03-29] MEDS ORDERED: HYDROcodone/Acetaminophen 5/325 mg Tablet ONE (14:39)
[2021-03-29] MEDS ORDERED: Insulin Regular 300 UNITS/3 ML VIAL ONE (15:42)
[2021-04-02 13:13] LABS: Fungus Stain Final report (.)
== END 2021-03-29 16:31 | disposition home or self-care (01) ==
LOC: SDC 09:00
PROVIDERS: ATTEND Internal Medicine
PROC: 07978ZX Drainage of Thorax Lymphatic, Via Natural or Artificial Opening Endoscopic Approach, Diagnostic (ICD-10-PCS; principal; 2021-03-29)
PROC: 0B9F8ZX Drainage of Right Lower Lung Lobe, Via Natural or Artificial Opening Endoscopic, Diagnostic (ICD-10-PCS; principal; 2021-03-29)
DX: R59.0 Localized enlarged lymph nodes (principal); R91.8 Other nonspecific abnormal finding of lung field; K21.9 Gastro-esophageal reflux disease without esophagitis; Z87.891 Personal history of nicotine dependence; Z79.4 Long term (current) use of insulin
CPT/HCPCS: 36416; 87070; 87102; 87205; 87206; 88112; 88172; 88173; 88184; 88305; 88312; 88341; 88342; J1100; J1815; J2250; J2405; J2704; J3010; J3490

== ENCOUNTER 2021-04-01 11:27 | Inpatient (IN) | payer OTHER ==
[2021-04-01] MEDS ORDERED: Morphine 4 MG/ML VIAL ONE ×2 (11:55→14:12)
[2021-04-01] MEDS ORDERED: Ondansetron PF 4 MG/2 ML Vial ONE (11:56)
[2021-04-01 12:12] LABS: #Basophils 0.1 thou/uL (0.0-0.2); #Eosinphils 0.3 thou/uL (0.0-0.7); #Lymphocytes 1.7 thou/uL (1.20-3.40); #Monocytes 0.5 thou/uL (0.11-0.59); #Neutrophils 3.9 thou/uL (1.40-6.50); %Basophils 1.1 % (0.0-1.0); %Eosinophils 4.2 % (0.0-10.0); %Lymphocytes 26.5 % (21.0-51.0); %Monocytes 8.2 % (0.0-10.0); %Neutrophils 60.1 % (42.0-75.0); Hemoglobin 15.7 g/dL (14.0-18.0); Mean Corpuscular HGB CONC 33.8 g/dL (32.0-36.0); Mean Corpuscular Hemoglobin 28.6 pg (27.0-31.0); Mean Corpuscular Volume 84.5 fL (78.0-98.0); Mean Platelet Volume 7.3 fL (7.4-10.4); Platelet Count 229 thou/uL (130-400); RBC Distribution Width 12.5 % (11.5-14.5); Red Blood Cell (RBC) Count 5.51 mill/uL (4.70-6.10); White Blood Cell (WBC) Count 6.5 thou/uL (4.8-10.8)
[2021-04-01 12:27] LABS: INR-International Normal Ratio 0.9; PTT 28.3 sec (22.9-36.1); Prothrombin Time 12.7 sec (12.0-14.7)
[2021-04-01 12:34] LABS: ALT (SGPT) 28 U/L (8-55); AST (SGOT) 20 U/L (5-34); Alkaline Phosphatase 108 U/L (40-110); Anion Gap 12 mmol/L (10-20); BUN (Urea Nitrogen) 13 mg/dL (8.9-20.6); Bilirubin, Total 0.6 mg/dL (0.2-1.2); Calc. Creatinine Clearance 0 mL/min (70-130); Calcium 9.1 mg/dL (7.8-10.44); Carbon Dioxide 25 mmol/L (22-29); Chloride 99 mmol/L (98-107); Globulin 3.2 g/dL (2.4-3.5); Glucose 307 mg/dL (70-105); Potassium 4.6 mmol/L (3.5-5.1); Protein, Total 7.2 g/dL (6.0-8.3); Sodium 131 mmol/L (136-145)
[2021-04-01] MEDS ORDERED: Acetaminophen 325 MG TAB PO PRN (13:36)
[2021-04-01] MEDS ORDERED: Senokot S 8.6-50 MG TAB PO PRN (13:36)
[2021-04-01] MEDS ORDERED: Melatonin 3 MG TAB PO PRN (13:40)
[2021-04-01] MEDS ORDERED: Morphine 4 MG/ML VIAL SLOW IVP PRN ×2 (13:40→13:43)
[2021-04-01] MEDS ORDERED: Dextrose 50% Abboject 50 ML SYRINGE SLOW IVP PRN (13:43)
[2021-04-01] MEDS ORDERED: Dextrose 5% in Water 1,000 ML IV PRN (13:43)
[2021-04-01] MEDS ORDERED: Chloraseptic Spray 180 ml Bottle PO PRN (13:45)
[2021-04-01 14:51] LABS: SARS-CoV-2 NAA Rapid Test Not Detected (NotDetected)
[2021-04-01 15:35] VITALS: BMI 29.5
[2021-04-01] MEDS: Ketorolac Tromethamine 30 MG/ML VIAL IVP PRN ×2 (16:21→23:16)
[2021-04-01] MEDS: HumaLOG 300 UNITS/3 ML VIAL SC PRN ×2 (16:27→20:47)
[2021-04-01] MEDS: Sodium Chloride 0.9% 1,000 ML IV SCH (16:52)
[2021-04-01] MEDS ORDERED: FLU VACC QS2021-22(6MOS UP)/PF 60 MCG/0.5 ML SYRINGE IM ONE (17:00)
[2021-04-01] MEDS ORDERED: Fentanyl 100 MCG/2 ML VIAL SLOW IVP PRN (18:07)
[2021-04-01] MEDS ORDERED: HYDROcodone/Acetaminophen 10/325 mg Tablet PO PRN (20:42)
[2021-04-01] MEDS: Famotidine 20 MG TAB PO SCH (20:43)
[2021-04-01] MEDS: Fentanyl 100 MCG/2 ML VIAL SLOW IVP PRN ×2 (20:50→23:17)
[2021-04-02] MEDS: Fentanyl 100 MCG/2 ML VIAL SLOW IVP PRN ×3 (01:35→05:40)
[2021-04-02] MEDS: Sodium Chloride 0.9% 1,000 ML IV SCH ×2 (03:51→15:13)
[2021-04-02] MEDS: HumaLOG 300 UNITS/3 ML VIAL SC PRN ×4 (05:40→20:47)
[2021-04-02] MEDS ORDERED: HYDROcodone/Acetaminophen 7.5/325 mg Tablet PO PRN (06:39)
[2021-04-02 07:19] LABS: #Basophils 0.1 thou/uL (0.0-0.2); #Eosinphils 0.3 thou/uL (0.0-0.7); #Lymphocytes 1.8 thou/uL (1.20-3.40); #Monocytes 0.5 thou/uL (0.11-0.59); #Neutrophils 2.9 thou/uL (1.40-6.50); %Basophils 1.7 % (0.0-1.0); %Eosinophils 4.9 % (0.0-10.0); %Lymphocytes 32.5 % (21.0-51.0); %Monocytes 8.5 % (0.0-10.0); %Neutrophils 52.4 % (42.0-75.0); Hemoglobin 13.9 g/dL (14.0-18.0); Mean Corpuscular HGB CONC 33.9 g/dL (32.0-36.0); Mean Corpuscular Hemoglobin 28.5 pg (27.0-31.0); Mean Platelet Volume 7.4 fL (7.4-10.4); Platelet Count 236 thou/uL (130-400); RBC Distribution Width 12.2 % (11.5-14.5); Red Blood Cell (RBC) Count 4.86 mill/uL (4.70-6.10); White Blood Cell (WBC) Count 5.6 thou/uL (4.8-10.8)
[2021-04-02 07:22] LABS: Hemoglobin A1c 12.9 % (4.0-6.0)
[2021-04-02 07:36] LABS: Anion Gap 11 mmol/L (10-20); BUN (Urea Nitrogen) 23 mg/dL (8.9-20.6); Calc. Creatinine Clearance 151 mL/min (70-130); Calcium 8.7 mg/dL (7.8-10.44); Carbon Dioxide 26 mmol/L (22-29); Chloride 100 mmol/L (98-107); Glucose 270 mg/dL (70-105); Potassium 4.2 mmol/L (3.5-5.1); Sodium 133 mmol/L (136-145)
[2021-04-02] MEDS: Famotidine 20 MG TAB PO SCH (07:55)
[2021-04-02] MEDS: Ketorolac Tromethamine 30 MG/ML VIAL IVP PRN (09:31)
[2021-04-02] MEDS ORDERED: HYDROcodone/Acetaminophen 10/325 mg Tablet PO PRN (11:59)
[2021-04-02] MEDS ORDERED: Ondansetron PF 4 MG/2 ML Vial IVP PRN (14:31)
[2021-04-02] MEDS ORDERED: Gabapentin 100 MG CAP PO SCH (14:45)
[2021-04-02] MEDS: traMADol HCl 50 MG TAB PO PRN ×2 (15:13→20:50)
[2021-04-02] MEDS ORDERED: Promethazine HCl 12.5 MG in Sodium Chloride 0.9% 50 ML IVPB PRN (16:33)
[2021-04-02] MEDS ORDERED: Pantoprazole 40 MG VIAL IVP SCH (16:45)
[2021-04-03] MEDS: HumaLOG 300 UNITS/3 ML VIAL SC PRN ×4 (05:23→20:35)
[2021-04-03] MEDS: Sodium Chloride 0.9% 1,000 ML IV SCH ×2 (05:24→20:34)
[2021-04-03] MEDS: traMADol HCl 50 MG TAB PO PRN (05:28)
[2021-04-03] MEDS ORDERED: Loperamide HCl 2 MG CAP PO PRN (07:20)
[2021-04-03] MEDS ORDERED: Hydrocerin (Eucerin) Cream 120 gm Jar TOP PRN (07:20)
[2021-04-03] MEDS ORDERED: Bisacodyl 5 MG TAB PO PRN (07:20)
[2021-04-03] MEDS ORDERED: Loratadine 10 MG TAB PO PRN (07:20)
[2021-04-03] MEDS ORDERED: Artificial Tear Sol 15 ML BOT EA EYE PRN (07:20)
[2021-04-03] MEDS ORDERED: Benzonatate 100 MG CAP PO PRN (07:20)
[2021-04-03] MEDS ORDERED: Zolpidem Tartrate 5 MG TAB PO PRN (07:20)
[2021-04-03] MEDS ORDERED: hydrALAZINE 20 MG/ML VIAL SLOW IVP PRN (07:20)
[2021-04-03] MEDS ORDERED: Ondansetron ODT 4 MG TAB PO PRN (07:20)
[2021-04-03] MEDS ORDERED: GUAIFENESIN SF SOLN 200 MG/10 ML UDCUP PO PRN (07:20)
[2021-04-03] MEDS ORDERED: Cepastat Lozenges 1 LOZ PO PRN (07:20)
[2021-04-03] MEDS ORDERED: Calcium Carbonate 500 MG ChewTAB PO PRN (07:20)
[2021-04-03] MEDS ORDERED: Sodium Chloride 0.65% Nasal 44 ML BOT EA NARE PRN (07:20)
[2021-04-03] MEDS ORDERED: HYDROcodone/Acetaminophen 5/325 mg Tablet PO PRN (07:20)
[2021-04-03] MEDS ORDERED: Non-Formulary Item 1 EACH (Insulin Degludec [Tresiba Flextouch U-100] 100 UNIT/ML Insuln. SQ SCH (09:00)
[2021-04-03] MEDS: Pantoprazole 40 MG VIAL IVP SCH ×2 (09:36→20:31)
[2021-04-03] MEDS: Lantus 1000 UNITS/10 ML VIAL SC SCH (09:37)
[2021-04-03] MEDS ORDERED: Morphine 2 MG/ML VIAL SLOW IVP PRN (10:52)
[2021-04-03] MEDS: Morphine 4 MG/ML VIAL SLOW IVP PRN (17:44)
[2021-04-04] MEDS: Sodium Chloride 0.9% 1,000 ML IV SCH (05:41)
[2021-04-04] MEDS: HumaLOG 300 UNITS/3 ML VIAL SC PRN ×2 (05:42→11:47)
[2021-04-04 07:18] VITALS: BP 112/62; TEMP 97.6
[2021-04-04] MEDS: Lantus 1000 UNITS/10 ML VIAL SC SCH (08:27)
[2021-04-04] MEDS: Morphine 4 MG/ML VIAL SLOW IVP PRN (08:28)
[2021-04-04] MEDS: Pantoprazole 40 MG VIAL IVP SCH (08:29)
[2021-04-04] MEDS ORDERED: Enoxaparin Sodium 40 MG/0.4 ML SYRINGE SC SCH (09:00)
== END 2021-04-04 12:47 | disposition home or self-care (01) | DRG 920 ==
LOC: ERS 11:27 → T4-B 15:11 → OBSVTOIN 04-02 15:28
PROVIDERS: ADMIT Internal Medicine; ATTEND Internal Medicine
DX: T81.82XA Emphysema (subcutaneous) resulting from a procedure, initial encounter (principal); E87.1 Hypo-osmolality and hyponatremia; R04.2 Hemoptysis; K21.9 Gastro-esophageal reflux disease without esophagitis; I10 Essential (primary) hypertension; E78.5 Hyperlipidemia, unspecified; G89.29 Other chronic pain; M54.9 Dorsalgia, unspecified; E78.00 Pure hypercholesterolemia, unspecified; E11.65 Type 2 diabetes mellitus with hyperglycemia; J47.9 Bronchiectasis, uncomplicated; Z87.11 Personal history of peptic ulcer disease; Z79.4 Long term (current) use of insulin; Z98.1 Arthrodesis status; Z87.891 Personal history of nicotine dependence; F41.1 Generalized anxiety disorder; E66.9 Obesity, unspecified; Z20.822 Contact with and (suspected) exposure to COVID-19; Y84.8 Other medical procedures as the cause of abnormal reaction of the patient, or of later complication, without mention of misadventure at the time of the procedure; F12.10 Cannabis abuse, uncomplicated; Z68.29 Body mass index [BMI] 29.0-29.9, adult
CPT/HCPCS: 0240U; 36415; 36416; 71045; 71275; 80048; 80053; 83036; 85025; 85610; 85730; 96374; 96375; 96376; C9113; G0378; J1650; J1815; J1885; J2270; J2405; J2550; J3010; J7050; Q9967

== ENCOUNTER 2021-07-19 10:14 | Outpatient (CLI) | payer SELFPAY | END 2021-07-19 10:15 | disposition home or self-care (01) | LOC: TBSIIMAG 10:14 | PROVIDERS: ATTEND Surgery | DX: M54.16 Radiculopathy, lumbar region (principal); M48.061 Spinal stenosis, lumbar region without neurogenic claudication; M43.16 Spondylolisthesis, lumbar region; Z98.890 Other specified postprocedural states | CPT/HCPCS: 72148 ==

== ENCOUNTER 2022-05-17 17:48 | Emergency (ER) | payer SELFPAY ==
[2022-05-17 18:59] LABS: #Basophils 0.1 thou/uL (0.0-0.2); #Eosinphils 0.2 thou/uL (0.0-0.7); #Lymphocytes 3.1 thou/uL (1.20-3.40); #Monocytes 0.7 thou/uL (0.11-0.59); #Neutrophils 4.6 thou/uL (1.40-6.50); %Basophils 1.1 % (0.0-1.0); %Eosinophils 2.3 % (0.0-10.0); %Lymphocytes 35.8 % (21.0-51.0); %Monocytes 7.8 % (0.0-10.0); Hemoglobin 16.5 g/dL (14.0-18.0); Mean Corpuscular Hemoglobin 30.1 pg (27.0-31.0); Mean Platelet Volume 7.8 fL (7.4-10.4); Platelet Count 211 10x3/uL (130-400); RBC Distribution Width 11.9 % (11.5-14.5); White Blood Cell (WBC) Count 8.7 10x3/uL (4.8-10.8)
[2022-05-17 19:26] LABS: ALT (SGPT) 26 U/L (8-55); AST (SGOT) 15 U/L (5-34); Albumin 4.3 g/dL (3.5-5.0); Alkaline Phosphatase 99 U/L (40-110); Anion Gap 14 mmol/L (10-20); BUN (Urea Nitrogen) 17 mg/dL (8.9-20.6); Bilirubin, Total 0.6 mg/dL (0.2-1.2); CK (CPK) 45 U/L (30-200); Calc. Creatinine Clearance 0 mL/min (70-130); Calcium 9.3 mg/dL (7.8-10.44); Carbon Dioxide 27 mmol/L (22-29); Chloride 100 mmol/L (98-107); Estimated GFR 94; Globulin 2.8 g/dL (2.4-3.5); Glucose 228 mg/dL (70-105); Potassium 4.5 mmol/L (3.5-5.1); Protein, Total 7.1 g/dL (6.0-8.3); Sodium 136 mmol/L (136-145)
[2022-05-17 19:42] LABS: SARS-CoV-2 NAA Rapid Test Not Detected (NotDetected)
[2022-05-17] MEDS ORDERED: Ketorolac Tromethamine 30 MG/ML VIAL ONE (20:41)
== END 2022-05-17 22:55 | disposition home or self-care (01) ==
LOC: ERS 17:48
DX: R20.2 Paresthesia of skin (principal); R10.9 Unspecified abdominal pain; E78.00 Pure hypercholesterolemia, unspecified; E11.9 Type 2 diabetes mellitus without complications; Z87.891 Personal history of nicotine dependence; Z20.822 Contact with and (suspected) exposure to COVID-19
CPT/HCPCS: 36415; 71045; 76705; 80053; 82550; 83605; 84484; 85025; 96372; J1885

== ENCOUNTER 2022-12-28 19:11 | Emergency (ER) | payer SELFPAY ==
[2022-12-28 20:14] LABS: #Eosinphils 0.1 thou/uL (0.0-0.7); #Monocytes 0.7 thou/uL (0.11-0.59); #Neutrophils 4.8 thou/uL (1.40-6.50); %Basophils 0.2 % (0.0-1.0); %Eosinophils 1.6 % (0.0-10.0); %Lymphocytes 28.5 % (21.0-51.0); %Monocytes 9.1 % (0.0-10.0); %Neutrophils 60.2 % (42.0-75.0); Hemoglobin 13.1 g/dL (14.0-18.0); Mean Corpuscular HGB CONC 34.1 g/dL (32.0-36.0); Mean Corpuscular Hemoglobin 29.9 pg (27.0-31.0); Mean Corpuscular Volume 87.7 fl (78.0-98.0); Mean Platelet Volume 10.2 fL (7.4-10.4); Platelet Count 219 10x3/uL (130-400); RBC Distribution Width 12.6 % (11.5-14.5); Red Blood Cell (RBC) Count 4.38 mill/uL (4.70-6.10)
[2022-12-28 20:37] LABS: ALT (SGPT) 18 U/L (8-55); AST (SGOT) 13 U/L (5-34); Albumin 4.2 g/dL (3.5-5.0); Alkaline Phosphatase 76 U/L (40-110); Anion Gap 14 mmol/L (10-20); BUN (Urea Nitrogen) 20 mg/dL (8.9-20.6); Bilirubin, Total 0.2 mg/dL (0.2-1.2); CK (CPK) 107 U/L (30-200); Calc. Creatinine Clearance 0 mL/min (70-130); Calcium 9.4 mg/dL (7.8-10.44); Carbon Dioxide 23 mmol/L (22-29); Chloride 104 mmol/L (98-107); Estimated GFR 107; Globulin 2.7 g/dL (2.4-3.5); Glucose 238 mg/dL (70-105); Potassium 4.4 mmol/L (3.5-5.1); Protein, Total 6.9 g/dL (6.0-8.3); Sodium 137 mmol/L (136-145)
== END 2022-12-28 21:15 | disposition home or self-care (01) ==
LOC: ERS 19:11
DX: S92.422A Displaced fracture of distal phalanx of left great toe, initial encounter for closed fracture (principal); E11.43 Type 2 diabetes mellitus with diabetic autonomic (poly)neuropathy; K31.84 Gastroparesis; E78.00 Pure hypercholesterolemia, unspecified; X58.XXXA Exposure to other specified factors, initial encounter
CPT/HCPCS: 36415; 80053; 82550; 85025

== ENCOUNTER 2023-04-02 14:44 | Outpatient (CLI) | payer OTHER | END 2023-04-02 14:45 | disposition home or self-care (01) | LOC: BICRAD 14:44 | PROVIDERS: ATTEND Preventive Medicine Occupational Medicine | DX: Z02.71 Encounter for disability determination (principal); S92.422D Displaced fracture of distal phalanx of left great toe, subsequent encounter for fracture with routine healing ==

== ENCOUNTER 2023-05-29 02:19 | Emergency (ER) | payer BC, SELFPAY ==
[2023-05-29] MEDS ORDERED: Sodium Chloride 0.9% 100 ML ONE (02:38)
[2023-05-29] MEDS ORDERED: Piperacillin/Tazobactam 4.5 GM VIAL ONE (02:38)
[2023-05-29] MEDS ORDERED: Ketorolac Tromethamine 30 MG/ML VIAL ONE (02:59)
[2023-05-29 03:06] LABS: #Eosinphils 0.1 thou/uL (0.0-0.7); #Monocytes 0.5 thou/uL (0.11-0.59); #Neutrophils 3.3 thou/uL (1.40-6.50); %Basophils 0.5 % (0.0-1.0); %Eosinophils 2.3 % (0.0-10.0); %Lymphocytes 34.1 % (21.0-51.0); %Monocytes 8.4 % (0.0-10.0); %Neutrophils 54.4 % (42.0-75.0); Hematocrit 42.5 % (42.0-52.0); Hemoglobin 14.2 g/dL (14.0-18.0); Mean Corpuscular HGB CONC 33.4 g/dL (32.0-36.0); Mean Corpuscular Hemoglobin 28.8 pg (27.0-31.0); Mean Corpuscular Volume 86.2 fl (78.0-98.0); Mean Platelet Volume 10.4 fL (7.4-10.4); Platelet Count 243 10x3/uL (130-400); RBC Distribution Width 13.2 % (11.5-14.5); Red Blood Cell (RBC) Count 4.93 mill/uL (4.70-6.10); White Blood Cell (WBC) Count 6.1 10x3/uL (4.8-10.8)
[2023-05-29] MEDS ORDERED: Vancomycin 1 GM/200 ML (FROZEN) BAG ONE (03:08)
[2023-05-29 03:20] LABS: INR-International Normal Ratio 0.9; Prothrombin Time 12.4 sec (12.0-14.7)
[2023-05-29 03:21] LABS: PTT 23.9 sec (22.9-36.1)
[2023-05-29 04:05] LABS: Carbon Dioxide 21 mmol/L (22-29); Chloride 101 mmol/L (98-107); Potassium 4.1 mmol/L (3.5-5.1); Sodium 135 mmol/L (136-145)
[2023-05-29 04:06] LABS: Anion Gap 17 mmol/L (10-20); BUN (Urea Nitrogen) 17 mg/dL (8.9-20.6); Bilirubin, Total 0.3 mg/dL (0.2-1.2); Calc. Creatinine Clearance 0 mL/min (70-130); Calcium 9.6 mg/dL (7.6-10.4); Estimated GFR 83; Glucose 326 mg/dL (70-105)
[2023-05-29 04:07] LABS: ALT (SGPT) 70 U/L (8-55); AST (SGOT) 32 U/L (5-34); Albumin 4.1 g/dL (3.5-5.0); Alkaline Phosphatase 117 U/L (40-110); Globulin 3.8 g/dL (2.4-3.5); Protein, Total 7.9 g/dL (6.0-8.3)
[2023-05-29 04:08] LABS: CRP (Inflammatory) Less than 0.50 mg/dL (= or < 0.5)
[2023-05-29 04:09] LABS: Magnesium 1.7 mg/dL (1.6-2.6)
[2023-05-29] MEDS ORDERED: Ondansetron PF 4 MG/2 ML Vial ONE (04:15)
[2023-05-29] MEDS ORDERED: Morphine 4 MG/ML VIAL ONE (04:15)
== END 2023-05-29 07:15 | disposition home or self-care (01) ==
LOC: ERS 02:19
DX: E11.621 Type 2 diabetes mellitus with foot ulcer (principal); L97.519 Non-pressure chronic ulcer of other part of right foot with unspecified severity; E11.65 Type 2 diabetes mellitus with hyperglycemia
CPT/HCPCS: 80053; 83605; 83735; 85025; 85610; 85730; 86140; 87040; 96365; 96367; 96375; J1885; J2270; J2405; J2543; J3370-JW; J3490

== ENCOUNTER 2023-07-10 14:13 | Emergency (ER) | payer SELFPAY ==
[2023-07-10 15:29] LABS: SARS-CoV-2 NAA Rapid Test DETECTED (NotDetected)
[2023-07-10] MEDS ORDERED: Ondansetron PF 4 MG/2 ML Vial ONE (15:46)
[2023-07-10 15:50] LABS: #Monocytes 0.9 thou/uL (0.11-0.59); #Neutrophils 3.9 thou/uL (1.40-6.50); %Basophils 0.3 % (0.0-1.0); %Eosinophils 0.5 % (0.0-10.0); %Lymphocytes 19.2 % (21.0-51.0); %Monocytes 14.5 % (0.0-10.0); %Neutrophils 65.2 % (42.0-75.0); Hematocrit 49.8 % (42.0-52.0); Hemoglobin 16.8 g/dL (14.0-18.0); Mean Corpuscular HGB CONC 33.7 g/dL (32.0-36.0); Mean Corpuscular Volume 85.9 fl (78.0-98.0); Mean Platelet Volume 10.1 fL (7.4-10.4); Platelet Count 201 10x3/uL (130-400); RBC Distribution Width 13.2 % (11.5-14.5)
[2023-07-10 16:28] LABS: ALT (SGPT) 20 U/L (8-55); AST (SGOT) 18 U/L (5-34); Albumin 4.6 g/dL (3.5-5.0); Alkaline Phosphatase 101 U/L (40-110); Anion Gap 21 mmol/L (10-20); BUN (Urea Nitrogen) 16 mg/dL (8.9-20.6); Bilirubin, Total 0.6 mg/dL (0.2-1.2); Calc. Creatinine Clearance 0 mL/min (70-130); Calcium 9.6 mg/dL (7.8-10.44); Carbon Dioxide 21 mmol/L (22-29); Chloride 98 mmol/L (98-107); Estimated GFR 60; Globulin 3.5 g/dL (2.4-3.5); Glucose 302 mg/dL (70-105); Magnesium 2.1 mg/dL (1.6-2.6); Potassium 4.8 mmol/L (3.5-5.1); Protein, Total 8.1 g/dL (6.0-8.3); Sodium 135 mmol/L (136-145)
[2023-07-10 16:32] LABS: Troponin I 0.013 ng/mL (< 0.028)
== END 2023-07-10 17:12 | disposition home or self-care (01) ==
LOC: ERS 14:13
DX: U07.1 COVID-19 (principal); J06.9 Acute upper respiratory infection, unspecified; R11.2 Nausea with vomiting, unspecified; E11.9 Type 2 diabetes mellitus without complications; E78.00 Pure hypercholesterolemia, unspecified; Z79.4 Long term (current) use of insulin; Z79.899 Other long term (current) drug therapy
CPT/HCPCS: 71045; 80053; 83605; 83735; 84484; 85025; 93005; 96361; 96374; J2405

== ENCOUNTER 2023-08-01 12:59 | Emergency (ER) | payer SELFPAY ==
[~2023-08-01 12:59] MED LIST changes: -Iopamidol-370 76% 500 ML 1 ML ONE; +Iopamidol-370 76% 500 ML MDV (1 ML CHARGE) ONE
[2023-08-01] MEDS ORDERED: Morphine 4 MG/ML VIAL ONE (13:33)
[2023-08-01] MEDS ORDERED: Ondansetron PF 4 MG/2 ML Vial ONE (13:33)
[2023-08-01 13:55] LABS: #Eosinphils 0.2 thou/uL (0.0-0.7); #Monocytes 0.7 thou/uL (0.11-0.59); #Neutrophils 5.6 thou/uL (1.40-6.50); %Basophils 0.2 % (0.0-1.0); %Lymphocytes 23.6 % (21.0-51.0); %Monocytes 8.6 % (0.0-10.0); Hematocrit 44.4 % (42.0-52.0); Hemoglobin 14.9 g/dL (14.0-18.0); Mean Corpuscular HGB CONC 33.6 g/dL (32.0-36.0); Mean Corpuscular Hemoglobin 28.7 pg (27.0-31.0); Mean Corpuscular Volume 85.4 fl (78.0-98.0); Mean Platelet Volume 10.3 fL (7.4-10.4); Platelet Count 266 10x3/uL (130-400); RBC Distribution Width 13.3 % (11.5-14.5); White Blood Cell (WBC) Count 8.6 10x3/uL (4.8-10.8)
[2023-08-01 14:38] LABS: ALT (SGPT) 36 U/L (8-55); AST (SGOT) 20 U/L (5-34); Albumin 4.2 g/dL (3.5-5.0); Alkaline Phosphatase 83 U/L (40-110); Anion Gap 15 mmol/L (10-20); BUN (Urea Nitrogen) 18 mg/dL (8.9-20.6); Bilirubin, Total 0.4 mg/dL (0.2-1.2); Calc. Creatinine Clearance 0 mL/min (70-130); Calcium 9.4 mg/dL (7.8-10.44); Carbon Dioxide 23 mmol/L (22-29); Chloride 100 mmol/L (98-107); Estimated GFR 80; Glucose 344 mg/dL (70-105); Lipase 82 U/L (8-78); Potassium 4.7 mmol/L (3.5-5.1); Protein, Total 7.2 g/dL (6.0-8.3); Sodium 133 mmol/L (136-145)
[2023-08-01 14:46] LABS: Bacteria/HPF None Seen HPF (None Seen); CAUTI Indications for Culture Dysuria,urgency,freq; RBC/HPF 0-3 HPF (0-3); Squamous Epithelial 0-3 HPF (0-3); WBC/HPF 0-3 HPF (0-3)
[2023-08-01] MEDS ORDERED: Ketorolac Tromethamine 30 MG (1 mL) VIAL ONE (14:47)
[2023-08-01] MEDS ORDERED: Dicyclomine 20 MG/2 ML VIAL ONE (14:47)
[2023-08-01] MEDS ORDERED: diphenhydrAMINE 50 MG/ML VIAL ONE (14:47)
[2023-08-01] MEDS ORDERED: Metoclopramide HCl 10 MG (2 mL) VIAL ONE (14:48)
[2023-08-01 14:58] LABS: Urine Culture Reflex No No
[2023-08-01 15:02] LABS: Clarity Clear (Clear)
[2023-08-01 15:05] LABS: Bilirubin Negative (Negative); Blood, Urine Trace (Negative); Glucose, Urine (Dipstick) >=1000 mg/dL (Negative); Ketone, Urine Negative (Negative); Leukocyte Negative (Negative); Nitrite Negative (Negative); Protein, Urine (Dipstick) Negative (Neg-Trace); Urobilinogen 0.2 mg/dL (Less than 2)
== END 2023-08-01 15:42 | disposition home or self-care (01) ==
LOC: ERS 12:59
DX: K31.84 Gastroparesis (principal); R10.32 Left lower quadrant pain; E78.00 Pure hypercholesterolemia, unspecified; E11.9 Type 2 diabetes mellitus without complications; K27.9 Peptic ulcer, site unspecified, unspecified as acute or chronic, without hemorrhage or perforation; M54.9 Dorsalgia, unspecified; G89.29 Other chronic pain; Z55.6 Problems related to health literacy
CPT/HCPCS: 36415; 74177; 80053; 81001; 83690; 85025; 96372; 96374; 96375; J1200; J1885; J2270; J2405; J2765; Q9967